=== PATIENT | male | born 1975 | race Caucasian/White ===

== ENCOUNTER 2016-09-07 08:47 | Day surgery (SDC) | payer SELFPAY ==
[~2016-09-07] VITALS: Ht 165.1 cm
--- NOTE | 2016-09-09 08:03 | OR ---
ADMIT: 09/07/2016 RM/LOC: [facility] MR#: [id number] [address] [address] JUS COMER [address] [place] [address] Operative/Delivery Room Report SEX: M AGE: 41 : 1975 SURGERY DATE: 09/07/2016 SURGEON: Ginette Stewart MD EGG PACKER: None. PREPROCEDURE DIAGNOSES: 1. Cervical spondylosis. 2. Cervicalgia. 3. Chronic daily headache. POSTPROCEDURE DIAGNOSES: 1. Cervical spondylosis. 2. Cervicalgia. 3. Chronic daily headache. PROCEDURE PERFORMED: Left cervical medial branch RFA (radiofrequency ablation) of the C2, C3, C4, and C5 levels. INDICATIONS FOR PROCEDURE: The patient is a pleasant gentleman with history of chronic neck pain with headache secondary to above mentioned diagnoses, comes here for a planned left C2, C3, C4, and C5 radiofrequency ablation. ANESTHESIA: Local without sedation. ESTIMATED BLOOD LOSS: Zero. COMPLICATIONS: None immediately evident. DESCRIPTION OF PROCEDURE: After the patient was seen in the preoperative area, vitals signs were taken. Prior to the procedure, the risks, benefits, and alternative therapies were discussed at length. Patient consent was obtained and updated. The patient was taken to the fluoroscopy suite and placed on the fluoroscopy table in the prone position. Pressure points were padded to comfort, monitors applied, and a timeout performed. The patient's jaw turned to the right side. The patient's cervical area was then prepped and draped sterilely using ChloraPrep. C-arm fluoroscopy was then brought in to identify the C2, C3, C4, and C5 vertebrae on the left side. A 22- ADMIT: 09/07/2016 RM/LOC: [facility] MR#: [id number] [id number] [address] NADEGESEGUNDO MARTINEZSJUS [address] [place] [address] Operative/Delivery Room Report SEX: M AGE: 41 : 1975 gauge 3.5-inch curved-tip spinal needle was then advanced through the anesthetize skin and made contact with the waist of C3, C4, C5, and C2-C3 junction on the left side. Once we obtained appropriate parameters for sensory motor testing, we proceeded with radiofrequency coagulation at each level, which consisted of 80 degrees for 90 seconds at each level. The patient tolerated the procedure well and had no complications. The patient was taken to the PACU where he recovered nicely. PLAN: Discharge instructions were given, followup scheduled. 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 Ginette Stewart MD/ amador JOB #: [id number] CC: Ginette Stewart, Attending Physician NO FAMILY PHYSICIAN, Family Physician
== END 2016-09-07 10:23 | disposition home or self-care (01) ==
LOC: SSS 08:47
PROC: 3E0T3TZ Introduction of Destructive Agent into Peripheral Nerves and Plexi, Percutaneous Approach (ICD-10-PCS; principal; 2016-09-07)
PROC: BR14YZZ Fluoroscopy of Cervical Facet Joint(s) using Other Contrast (ICD-10-PCS; principal; 2016-09-07)
DX: G89.29 Other chronic pain (principal); M47.812 Spondylosis without myelopathy or radiculopathy, cervical region; F41.9 Anxiety disorder, unspecified; G44.221 Chronic tension-type headache, intractable; M47.816 Spondylosis without myelopathy or radiculopathy, lumbar region; G44.1 Vascular headache, not elsewhere classified; F17.210 Nicotine dependence, cigarettes, uncomplicated

== ENCOUNTER 2016-09-21 07:17 | Day surgery (SDC) | payer SELFPAY ==
[~2016-09-21] VITALS: Ht 165.1 cm
--- NOTE | 2016-09-22 07:52 | OR ---
ADMIT: 09/21/2016 RM/LOC: [facility] MR#: [id number] [address] [facility] [address] [place], [place] [address] JUS COMER [address] [place] [address] Operative/Delivery Room Report SEX: M AGE: 41 : 1975 SURGERY DATE: 09/21/2016 SURGEON: Ginette Stewart MD BANKER MASON: None. PREPROCEDURE DIAGNOSES: 1. Cervical spondylosis. 2. Cervicalgia. 3. Chronic daily headaches. POSTPROCEDURE DIAGNOSES: 1. Cervical spondylosis. 2. Cervicalgia. 3. Chronic daily headaches. PROCEDURE PERFORMED: Right C2, C3, C4, and C5 cervical radiofrequency ablation. INDICATIONS FOR PROCEDURE: The patient is a pleasant gentleman with history of chronic headaches and neck pain secondary to above-mentioned diagnosis comes here for planned right-sided C2, C3, C4, and C5 radiofrequency ablation. ANESTHESIA: Local without sedation. ESTIMATED BLOOD LOSS: Zero. COMPLICATIONS: None immediately evident. DESCRIPTION OF PROCEDURE: After the patient was seen in the preoperative area, vitals signs were taken. Prior to the procedure, the risks, benefits, and alternative therapies were discussed at length. Patient consent was obtained and updated. The patient was taken to the fluoroscopy suite and placed on the fluoroscopy table in the prone position. Pressure points were padded to comfort, monitors applied, and a timeout performed. The patient's jaw turned to the left side. The patient's cervical area was then prepped and draped sterilely using ChloraPrep. C-arm fluoroscopy was then brought in to identify the C2, C3, C4, and C5 vertebrae on the right side. A ADMIT: 09/21/2016 RM/LOC: [facility] MR#: [id number] [address] [place] [address] [address] [place], [place] [address] JUS COMER [address] [place] [address] Operative/Delivery Room Report SEX: M AGE: 41 : 1975 22-gauge 3.5-inch curved-tip spinal needle was then advanced through the anesthetize skin and made contact with the C2 jaw-C3 junction, C3 waist, C4 waist and C5 waist on the right side. Once we obtained appropriate parameters for sensory motor testing, we proceeded with radiofrequency coagulation at each level, which consisted of 80 degrees for 90 seconds at each level. The patient tolerated the procedure well and had no complications. The patient was taken to the PACU where he recovered nicely. PLAN: Discharge instructions were given, followup scheduled. 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 Ginette Stewart MD/ amador JOB #: [id number] CC: Ginette Stewart, Attending Physician FAMILY PHYSICIAN, Family Physician
== END 2016-09-21 09:21 | disposition home or self-care (01) ==
LOC: SSS 07:17
PROC: BR14YZZ Fluoroscopy of Cervical Facet Joint(s) using Other Contrast (ICD-10-PCS; principal; 2016-09-21)
PROC: 3E0T3TZ Introduction of Destructive Agent into Peripheral Nerves and Plexi, Percutaneous Approach (ICD-10-PCS; principal; 2016-09-21)
DX: G89.29 Other chronic pain (principal); M47.812 Spondylosis without myelopathy or radiculopathy, cervical region